=== PATIENT | male | born 1990 | race Caucasian/White ===

== ENCOUNTER 2021-03-20 11:52 | Emergency (ER) | payer MEDICARE, SELFPAY | END 2021-03-20 12:35 | disposition home or self-care (01) | LOC: NAV ERS 11:52 | DX: L50.9 Urticaria, unspecified (principal); L30.9 Dermatitis, unspecified; B86 Scabies; F17.210 Nicotine dependence, cigarettes, uncomplicated | CPT/HCPCS: 99282 ==

== ENCOUNTER 2022-01-07 02:11 | Emergency (ER) | payer SELFPAY ==
[2022-01-07] MEDS ORDERED: AMOXicillin 250 MG CAP ONE (02:36)
== END 2022-01-07 02:40 | disposition home or self-care (01) ==
LOC: NAV ERS 02:11
DX: K02.9 Dental caries, unspecified (principal); F17.210 Nicotine dependence, cigarettes, uncomplicated
CPT/HCPCS: 99282

== ENCOUNTER 2022-06-20 21:08 | Emergency (ER) | payer SELFPAY ==
[2022-06-20] MEDS ORDERED: Bupivacaine 0.5% 10 ML VIAL ONE (21:49)
[2022-06-20] MEDS ORDERED: traMADol HCl 50 MG TAB ONE (21:49)
[2022-06-20] MEDS ORDERED: Clindamycin 150 MG CAP ONE (21:49)
== END 2022-06-20 22:22 | disposition home or self-care (01) ==
LOC: NAV ERS 21:08
DX: K04.7 Periapical abscess without sinus (principal); K03.81 Cracked tooth; F17.210 Nicotine dependence, cigarettes, uncomplicated
CPT/HCPCS: 64400; J3490

== ENCOUNTER 2023-05-25 13:32 | Emergency (ER) | payer SELFPAY ==
[2023-05-25] MEDS ORDERED: Meclizine HCl 25 MG TAB ONE (14:16)
== END 2023-05-25 15:09 | disposition home or self-care (01) ==
LOC: NAV ERS 13:32
DX: H81.10 Benign paroxysmal vertigo, unspecified ear (principal); F17.210 Nicotine dependence, cigarettes, uncomplicated
CPT/HCPCS: 99283

== ENCOUNTER 2023-11-18 20:22 | Emergency (ER) | payer SELFPAY ==
[2023-11-18] MEDS ORDERED: Sodium Chloride 0.9% 1,000 ML ONE (20:47)
[2023-11-18] MEDS ORDERED: Acetaminophen 500 MG TAB ONE (20:47)
[2023-11-18 21:04] LABS: Bilirubin Negative (Negative); Blood, Urine Negative (Negative); Clarity Clear (Clear); Glucose, Urine (Dipstick) Negative (Negative); Ketone, Urine Negative (Negative); Leukocyte Negative (Negative); Nitrite Negative (Negative); Protein, Urine (Dipstick) Negative (Neg-Trace); Urobilinogen 0.2 mg/dL (Less than 2); pH, Urine 6.5 (5.0-9.0)
[2023-11-18 21:12] LABS: Bacteria/HPF None Seen HPF (None Seen); CAUTI Indications for Culture Fever or rigors; RBC/HPF None Seen HPF (0-3); Squamous Epithelial None Seen HPF (0-3); WBC/HPF None Seen HPF (0-3)
[2023-11-18 21:14] LABS: Urine Culture Reflex No No
[2023-11-18 21:20] LABS: Influenza A by NAA Not Detected (NotDetected); Influenza B by NAA Not Detected (NotDetected); SARS-CoV-2 NAA Rapid Test DETECTED (NotDetected)
[2023-11-18] MEDS ORDERED: Dexamethasone 4 mg/ml Vial ONE (21:26)
== END 2023-11-18 21:36 | disposition home or self-care (01) ==
LOC: NAV ERS 20:22
DX: U07.1 COVID-19 (principal); B34.9 Viral infection, unspecified; F17.210 Nicotine dependence, cigarettes, uncomplicated
CPT/HCPCS: 81001; 96374; J1100; J7050

== ENCOUNTER 2024-03-03 03:40 | Emergency (ER) | payer SELFPAY ==
[2024-03-03 04:01] LABS: #Basophils 0.1 thou/uL (0.0-0.2); #Eosinphils 0.2 thou/uL (0.0-0.7); #Lymphocytes 2.8 thou/uL (1.20-3.40); #Monocytes 0.5 thou/uL (0.11-0.59); #Neutrophils 2.4 thou/uL (1.40-6.50); %Basophils 1.3 % (0.0-1.0); %Monocytes 8.4 % (0.0-10.0); %Neutrophils 40.2 % (42.0-75.0); Hematocrit 43.2 % (42.0-52.0); Hemoglobin 14.9 g/dL (14.0-18.0); Mean Corpuscular HGB CONC 34.5 g/dL (32.0-36.0); Mean Corpuscular Hemoglobin 29.9 pg (27.0-31.0); Mean Corpuscular Volume 86.6 fl (78.0-98.0); Platelet Count 237 10x3/uL (130-400); RBC Distribution Width 10.8 % (11.5-14.5); Red Blood Cell (RBC) Count 4.98 mill/uL (4.70-6.10); White Blood Cell (WBC) Count 5.9 10x3/uL (4.8-10.8)
[2024-03-03 04:07] LABS: Bilirubin Negative (Negative); Blood, Urine Negative (Negative); Clarity Clear (Clear); Glucose, Urine (Dipstick) Negative (Negative); Ketone, Urine Negative (Negative); Leukocyte Negative (Negative); Nitrite Negative (Negative); Protein, Urine (Dipstick) Negative (Neg-Trace); Urobilinogen 0.2 mg/dL (Less than 2); pH, Urine 6.5 (5.0-9.0)
[2024-03-03 04:13] LABS: Bacteria/HPF Rare-Few HPF (None Seen); CAUTI Indications for Culture Pelvic or flank pain; RBC/HPF None Seen HPF (0-3); WBC/HPF 0-3 HPF (0-3)
[2024-03-03 04:14] LABS: Urine Culture Reflex No No
[2024-03-03 04:15] LABS: ALT (SGPT) 16 U/L (8-55); AST (SGOT) 18 U/L (5-34); Albumin 4.4 g/dL (3.5-5.0); Alkaline Phosphatase 67 U/L (40-110); Anion Gap 14 mmol/L (10-20); BUN (Urea Nitrogen) 14 mg/dL (8.9-20.6); Bilirubin, Total 0.3 mg/dL (0.2-1.2); Calc. Creatinine Clearance 0 mL/min (70-130); Calcium 9.7 mg/dL (7.8-10.44); Carbon Dioxide 24 mmol/L (22-29); Chloride 105 mmol/L (98-107); Estimated GFR 116; Globulin 3.2 g/dL (2.4-3.5); Glucose 119 mg/dL (70-105); Potassium 3.4 mmol/L (3.5-5.1); Protein, Total 7.6 g/dL (6.0-8.3); Sodium 140 mmol/L (136-145)
[2024-03-03 04:29] LABS: Amphetamine Not Detected (NotDetected); Barbiturates Screen Not Detected (NotDetected); Benzodiazepine Screen Not Detected (NotDetected); Cocaine Metabolite Screen Not Detected (NotDetected); Methadone Not Detected (NotDetected); Methamphetamine Not Detected (NotDetected); Opiate Screen Not Detected (NotDetected); Oxycodone Screen Not Detected (NotDetected); Phencyclidine (PCP) Not Detected (NotDetected); THC/Cannabinoid Screen Not Detected (NotDetected); Tricyclic Screen Not Detected (NotDetected)
[2024-03-04 14:19] LABS: Campy jejuni + coli by PCR Negative (Negative); STEC Shiga Toxin 1+2 Negative (Negative); Salmonella spp. by PCR Negative (Negative); Shigella spp + EIEC by PCR Negative (Negative)
== END 2024-03-03 04:41 | disposition home or self-care (01) ==
LOC: NAV ERS 03:40
DX: K52.9 Noninfective gastroenteritis and colitis, unspecified (principal); R14.0 Abdominal distension (gaseous); F17.290 Nicotine dependence, other tobacco product, uncomplicated
CPT/HCPCS: 80053; 80306; 81001; 82274; 83690; 85025; 87505; 99284

== ENCOUNTER 2024-07-12 13:45 | Emergency (ER) | payer OTHER, SELFPAY ==
[2024-07-12] MEDS ORDERED: Lidocaine 1% (PF) 30 ML VIAL ONE (13:56)
[2024-07-12] MEDS ORDERED: Boostrix 0.5 ML (Tdap) VIAL (>/=7 yrs of age) ONE (15:11)
== END 2024-07-12 15:54 | disposition home or self-care (01) ==
LOC: NAV ERS 13:45
DX: S61.210A Laceration without foreign body of right index finger without damage to nail, initial encounter (principal); F17.290 Nicotine dependence, other tobacco product, uncomplicated; W26.0XXA Contact with knife, initial encounter; Z23 Encounter for immunization
CPT/HCPCS: 12042; 90471; 90715